=== PATIENT | female | born 1955 | race Caucasian/White ===

== ENCOUNTER 2018-09-27 04:30 | Emergency (ER) | payer MEDICARE, OTHER ==
[2018-09-27 04:40] VITALS: O2SAT 100
[2018-09-27] MEDS ORDERED: Zofran 4 MG/2 ML VIAL IV ONE (05:17)
[2018-09-27] MEDS ORDERED: SUBLIMAZE 100 MCG/2 ML IV ONE (05:17)
[2018-09-27] MEDS ORDERED: MORPHINE SULFATE 4 MG INJ IV ONE (05:17)
[2018-09-27] MEDS ORDERED: BENADRYL 50 MG/ML IV ONE (05:17)
--- NOTE | 2018-09-27 05:22 | ERPHSYRPT ---
- History of Present Illness Time Seen by Provider: 09/27/18 05:17 Historian: patient, family Exam Limitations: no limitations Patient Subjective Stated Complaint: pt states, "we flew into [facility] on Fri and I went to their urgent care due to rt sided low abd pain. CT was done and shown constipation". I took fleets enema, dulcolax suppository all in groups, with no results". Triage Nursing Assessment: lungs clear, heart tones, reg, abd soft with active bs x4 quad, non-tender on palpation. Pt states, "I felt good yesterday but woke up today at 0200 with lower abd pain again to rt side". Pt took enema and suppository this am at 0200 with no results. Physician History: pt saw urgent care and had reported neg CT for abd pain 2 days ago , but is awakened by severe pain again this am in middle of night and is tender at the RLQ ; prior GB surgery; no vomiting but is nauseated. no afib or heart known Timing/Duration: day(s) Quality: sharpness, stabbing Abdominal Pain Onset Location: RLQ Pain Radiation: periumbilical, back Severity of Pain-Max: severe Severity of Pain-Current: moderate Modifying Factors: Improves With: nothing Associated Symptoms: loss of appetite, nausea Previous symptoms: same symptoms as today, recently seen, recently treated Allergies/Adverse Reactions: No Known Drug Allergies Allergy (Unverified 09/27/18 04:57) Home Medications: Lisinopril 10 mg [Zestril 10 MG] 10 mg PO DAILY 09/27/18 [History] Phenylephrine HCl/Chlor-Mal [Sudafed PE Sinus & Allergy Tab] 1 tab PO DAILY [History] Hx Tetanus, Diphtheria Vaccination/Date Given: Yes Hx Influenza Vaccination/Date Given: Yes Hx Pneumococcal Vaccination/Date Given: No Immunizations Up to Date: Yes - Review of Systems Constitutional: No Fever, No Chills Eyes: No Symptoms Ears, Nose, & Throat: No Symptoms Respiratory: No Cough, No Dyspnea Cardiac: No Chest Pain, No Edema, No Syncope Abdominal/Gastrointestinal: Abdominal Pain, Nausea, No Vomiting, No Diarrhea Genitourinary Symptoms: No Dysuria Musculoskeletal: No Back Pain, No Neck Pain Skin: No Rash Neurological: No Dizziness, No Focal Weakness, No Sensory Changes Psychological: No Symptoms Endocrine: No Symptoms All Other Systems: Reviewed and Negative - Past Medical History Pertinent Past Medical History: Yes Neurological History: Other ENT History: No Pertinent History Cardiac History: Hypertension Respiratory History: No Pertinent History Endocrine Medical History: No Pertinent History Musculoskeletal History: No Pertinent History GI Medical History: Gallbladder Disease History: No Pertinent History Psycho-Social History: No Pertinent History Female Reproductive Disorders: No Pertinent History Other Medical History: hypnic headaches, Hep C (cured) - Past Surgical History Past Surgical History: Yes Neuro Surgical History: No Pertinent History Cardiac: No Pertinent History Respiratory: No Pertinent History Gastrointestinal: Cholecystectomy Genitourinary: No Pertinent History Musculoskeletal: No Pertinent History Female Surgical History: Section Other Surgical History: cryosurgery - Social History Smoking Status: Never smoker Exposure to second hand smoke: No Drug Use: none Patient Lives Alone: No - Female History Hx Now: No - Nursing Vital Signs Nursing Vital Signs: Initial Vital Signs Temperature 97.2 F 09/27/18 04:35 Pulse Rate 72 09/27/18 04:35 Respiratory Rate 18 09/27/18 04:35 Blood Pressure 153/84 09/27/18 04:35 O2 Sat by Pulse Oximetry 100 09/27/18 04:35 Pain Scale Pain Intensity 9 - Physical Exam General Appearance: no apparent distress, alert Eye Exam: PERRL/EOMI, eyes nml inspection Ears, Nose, Throat Exam: normal ENT inspection, pharynx normal, moist mucous membranes Neck Exam: normal inspection, non-tender, supple, full range of motion Respiratory Exam: normal breath sounds, lungs clear, airway intact, No respiratory distress Cardiovascular Exam: regular rate/rhythm, normal heart sounds Gastrointestinal/Abdomen Exam: soft, tenderness, No mass Pelvic Exam: deferred Rectal Exam: deferred Back Exam: normal inspection, normal range of motion, No CVA tenderness, No vertebral tenderness Extremity Exam: normal inspection, normal range of motion, pelvis stable Neurologic Exam: alert, oriented x 3, cooperative, normal mood/affect, nml cerebellar function, sensation nml, No motor deficits Skin Exam: normal color, warm, dry SpO2: 100 - Course Nursing assessment & vital signs reviewed: Yes EKG Interpreted by Me: Sinus Rhythm, NORMAL AXIS, Non-specific ST Changes - CT Exams Abdomen/Pelvis CT Interpretation: Tele-radiologist Report, No appendicitis, Other (thickened sigmoid colon , possible colon irritation) Ordered Tests: Active Orders 24 hr Category Date Time Status EKG-ER Only STAT Care 09/27/18 05:17 Active IV Insertion STAT Care 09/27/18 05:17 Active NPO (ED) STAT Care 09/27/18 05:17 Active ABDOMEN AND PELVIS W/0 CONTRAS [CT] Stat Exams 09/27/18 05:18 Taken AMYLASE Stat Lab 09/27/18 06:13 Completed CBC W DIFF Stat Lab 09/27/18 06:13 Completed CMP Stat Lab 09/27/18 06:13 Completed LIPASE Stat Lab 09/27/18 06:13 Completed Lactic Acid Stat Lab 09/27/18 06:15 Completed Occult Blood, Other Screening Stat Lab 09/27/18 05:18 Uncollected TROPONIN Q3H Lab 09/27/18 06:13 Completed TROPONIN Q3H Lab 09/27/18 08:30 Ordered TROPONIN Q3H Lab 09/27/18 11:30 Ordered TROPONIN Q3H Lab 09/27/18 14:30 Ordered TROPONIN Q3H Lab 09/27/18 17:30 Ordered UA W/RFX UR CULTURE Stat Lab 09/27/18 05:45 Completed Medication Summary Generic Name Dose Route Start Last Admin Trade Name Freq PRN Reason Stop Dose Admin Sodium Chloride 1,000 mls @ 100 mls/hr 09/27/18 05:30 09/27/18 06:06 Sodium Chloride 0.9% 1000 Ml IV 10/27/18 05:29 100 mls/hr .Q10H JUSTIN Administration Discontinued Medications Generic Name Dose Route Start Last Admin Trade Name Freq PRN Reason Stop Dose Admin Diphenhydramine HCl 25 mg 09/27/18 05:17 09/27/18 06:05 Benadryl 50 Mg/Ml IV 09/27/18 05:18 25 mg STAT ONE Administration Diphenhydramine HCl Confirm 09/27/18 06:02 Benadryl 50 Mg/Ml Administered 09/27/18 06:03 Dose 50 mg .ROUTE .STK-MED ONE Fentanyl Citrate 50 mcg 09/27/18 05:17 09/27/18 06:08 Sublimaze 100 Mcg/2 Ml IV 09/27/18 05:18 Not Given STAT ONE Morphine Sulfate 4 mg 09/27/18 05:17 09/27/18 06:06 Morphine Sulfate 4 Mg Inj IV 09/27/18 05:18 4 mg STAT ONE Administration Morphine Sulfate Confirm 09/27/18 06:03 Morphine Sulfate 4 Mg Inj Administered 09/27/18 06:04 Dose 4 mg .ROUTE .STK-MED ONE Ondansetron HCl 4 mg 09/27/18 05:17 09/27/18 06:06 Zofran 4 Mg/2 Ml Vial IV 09/27/18 05:18 4 mg STAT ONE Administration Ondansetron HCl Confirm 09/27/18 06:02 Zofran 4 Mg/2 Ml Vial Administered 09/27/18 06:03 Dose 4 mg .ROUTE .STK-MED ONE Lab/Rad Data: Laboratory Result Diagrams 09/27/18 06:13 09/27/18 06:13 Laboratory Results 09/27/18 09/27/18 09/27/18 Range/Units 06:15 06:13 06:13 WBC (4.0-10.5) K/mm3 RBC (4.1-5.4) M/mm3 Hgb (12.0-16.0) gm/dl Hct (35-47) % MCV (78-100) fl MCH (26-32) pg MCHC (32-36) g/dl RDW (11.5-14.0) % Plt Count (150-450) K/mm3 MPV (6-9.5) fl Gran % (36.0-66.0) % Eos # (Auto) (0-0.5) Absolute Lymphs (auto) (1.0-4.6) Absolute Monos (auto) (0.0-1.3) Lymphocytes % (24.0-44.0) % Monocytes % (0.0-12.0) % Eosinophils % (0.00-5.0) % Basophils % (0.0-0.4) % Absolute Granulocytes (1.4-6.9) Basophils # (0-0.4) Sodium 135 L (137-145) mmol/L Potassium 4.2 (3.5-5.1) mmol/L Chloride 98 (98-107) mmol/L Carbon Dioxide 30 (22-30) mmol/L Anion Gap 11.2 (5-15) MEQ/L BUN 12 (7-17) mg/dL Creatinine 0.78 (0.52-1.04) mg/dL Estimated GFR > 60.0 ML/MIN Glucose 91 (74-106) mg/dL Lactic Acid 1.0 (0.4-2.0) Calcium 9.8 (8.4-10.2) mg/dL Total Bilirubin 0.80 (0.2-1.3) mg/dL AST 24 (14-36) U/L ALT 23 (0-35) U/L Alkaline Phosphatase 43 (38-126) U/L Troponin I < 0.012 (0.000-0.034) ng/mL Serum Total Protein 7.0 (6.3-8.2) g/dL Albumin 4.5 (3.5-5.0) g/dL Amylase 98 (30-110) U/L Lipase 160 (23-300) U/L Urine Color (YELLOW) Urine Appearance (CLEAR) Urine pH (5-6) Ur Specific [place] (1.005-1.025) Urine Protein (Negative) Urine Ketones (NEGATIVE) Urine Blood (0-5) Trent/ul Urine Nitrite (NEGATIVE) Urine Bilirubin (NEGATIVE) Urine Urobilinogen (0-1) mg/dL Ur Leukocyte Esterase (NEGATIVE) Urine WBC (Auto) (0-5) /HPF Urine RBC (Auto) (0-2) /HPF U Epithel Cells (Auto) (FEW) /HPF Urine Bacteria (Auto) (NEGATIVE) /HPF Urine Culture Reflexed (NO) Urine Glucose (NEGATIVE) mg/dL 09/27/18 09/27/18 Range/Units 06:13 05:45 WBC 6.0 (4.0-10.5) K/mm3 RBC 4.65 (4.1-5.4) M/mm3 Hgb 14.5 (12.0-16.0) gm/dl Hct 41.7 (35-47) % MCV 89.7 (78-100) fl MCH 31.2 (26-32) pg MCHC 34.8 (32-36) g/dl RDW 12.7 (11.5-14.0) % Plt Count 159 (150-450) K/mm3 MPV 11.4 H (6-9.5) fl Gran % 52.8 (36.0-66.0) % Eos # (Auto) 0.15 (0-0.5) Absolute Lymphs (auto) 1.86 (1.0-4.6) Absolute Monos (auto) 0.81 (0.0-1.3) Lymphocytes % 31.0 (24.0-44.0) % Monocytes % 13.5 H (0.0-12.0) % Eosinophils % 2.5 (0.00-5.0) % Basophils % 0.2 (0.0-0.4) % Absolute Granulocytes 3.17 (1.4-6.9) Basophils # 0.01 (0-0.4) Sodium (137-145) mmol/L Potassium (3.5-5.1) mmol/L Chloride (98-107) mmol/L Carbon Dioxide (22-30) mmol/L Anion Gap (5-15) MEQ/L BUN (7-17) mg/dL Creatinine (0.52-1.04) mg/dL Estimated GFR ML/MIN Glucose (74-106) mg/dL Lactic Acid (0.4-2.0) Calcium (8.4-10.2) mg/dL Total Bilirubin (0.2-1.3) mg/dL AST (14-36) U/L ALT (0-35) U/L Alkaline Phosphatase (38-126) U/L Troponin I (0.000-0.034) ng/mL Serum Total Protein (6.3-8.2) g/dL Albumin (3.5-5.0) g/dL Amylase (30-110) U/L Lipase (23-300) U/L Urine Color STRAW (YELLOW) Urine Appearance CLEAR (CLEAR) Urine pH 6.0 (5-6) Ur Specific [place] 1.005 (1.005-1.025) Urine Protein NEGATIVE (Negative) Urine Ketones NEGATIVE (NEGATIVE) Urine Blood SMALL (0-5) Trent/ul Urine Nitrite NEGATIVE (NEGATIVE) Urine Bilirubin NEGATIVE (NEGATIVE) Urine Urobilinogen NEGATIVE (0-1) mg/dL Ur Leukocyte Esterase NEGATIVE (NEGATIVE) Urine WBC (Auto) NONE (0-5) /HPF Urine RBC (Auto) NONE (0-2) /HPF U Epithel Cells (Auto) NONE (FEW) /HPF Urine Bacteria (Auto) NONE (NEGATIVE) /HPF Urine Culture Reflexed NO (NO) Urine Glucose NEGATIVE (NEGATIVE) mg/dL - Progress Progress: unchanged, re-examined Progress Note: 09/27/18 07:00 discussed with pt and and dr Bhakta covering and all agree best to place in on obs, and will start ab as if colitis or divertic; Discussed with : Yony Will see patient in: hospital (observation) Counseled pt/family regarding: lab results, diagnosis, need for follow-up, rad results - Departure Departure Disposition: Observation Clinical Impression: Abdominal pain of unknown etiology, Hematuria Condition: Good Critical Care Time: No Referrals: Provider,Unknown [Primary Care Provider] -
[2018-09-27] MEDS ORDERED: Sodium Chloride 0.9% 1000 ML 1,000 ML IV SCH ×2 (05:30→07:30)
[2018-09-27 05:54] LABS: Appearance CLEAR (CLEAR); Bilirubin NEGATIVE (NEGATIVE); Blood SMALL Ery/ul (0-5); Glucose NEGATIVE (NEGATIVE); Ketones NEGATIVE (NEGATIVE); Leukocyte Esterase NEGATIVE (NEGATIVE); Nitrite NEGATIVE (NEGATIVE); Protein,Urine Dip NEGATIVE (Negative); Specific Gravity 1.005 (1.005-1.025); Urobilinogen NEGATIVE mg/dL (0-1)
[2018-09-27] MEDS ORDERED: BENADRYL 50 MG/ML ONE (06:02)
[2018-09-27] MEDS ORDERED: Zofran 4 MG/2 ML VIAL ONE (06:02)
[2018-09-27] MEDS ORDERED: MORPHINE SULFATE 4 MG INJ ONE (06:03)
[2018-09-27] MEDS ORDERED: Sodium Chloride 0.9% 1000 ML 1,000 ML ONE (06:03)
[2018-09-27 06:16] LABS: BASOPHIL % 0.2 % (0.0-0.4); Basophil (Absolute #) 0.01 (0-0.4); Eosinophil % 2.5 % (0.00-5.0); Eosinophil (Absolute #) 0.15 (0-0.5); Granulocyte Absolute (ANC) 3.17 (1.4-6.9); Granulocytes % 52.8 % (36.0-66.0); Hematocrit 41.7 % (35-47); Hemoglobin 14.5 gm/dl (12.0-16.0); Lymphocyte (Absolute #) 1.86 (1.0-4.6); Mean Cell Volume 89.7 fl (78-100); Mean Corpuscular Hemoglobin 31.2 pg (26-32); Mean Corpuscular Hgb Concent. 34.8 g/dl (32-36); Mean Platelet Volume 11.4 fl (6-9.5); Monocyte (Absolute #) 0.81 (0.0-1.3); Monocytes % 13.5 % (0.0-12.0); Platelet Count 159 K/mm3 (150-450); Red Blood Count 4.65 M/mm3 (4.1-5.4); Red Cell Distribution Width 12.7 % (11.5-14.0)
[2018-09-27 06:27] LABS: ALBUMIN 4.5 g/dL (3.5-5.0); ALKALINE PHOSPHATASE 43 U/L (38-126); AMYLASE 98 U/L (30-110); ANION GAP 11.2 MEQ/L (5-15); BLOOD UREA NITROGEN 12 mg/dL (7-17); CHLORIDE 98 mmol/L (98-107); Calcium 9.8 mg/dL (8.4-10.2); Carbon Dioxide 30 mmol/L (22-30); Creatinine 1 0.78 mg/dL (0.52-1.04); Glucose 91 mg/dL (74-106); LIPASE 160 U/L (23-300); Potassium 4.2 mmol/L (3.5-5.1); SGOT/AST 24 U/L (14-36); SGPT/ALT 23 U/L (0-35); SODIUM 135 mmol/L (137-145)
[2018-09-27 06:48] VITALS: BP 138/70; PULSE 62
[2018-09-27] MEDS ORDERED: DILAUDID 2 MG INJECTION IV PRN (07:19)
[2018-09-27] MEDS ORDERED: BENADRYL 50 MG/ML IV PRN (07:19)
[2018-09-27] MEDS ORDERED: Zofran 4 MG/2 ML VIAL IV PRN (07:19)
[2018-09-27] MEDS ORDERED: NovoLIN R SQ PRN (07:19)
[2018-09-27] MEDS ORDERED: MORPHINE SULFATE 4 MG INJ IV PRN (07:19)
[2018-09-27] MEDS ORDERED: Levofloxacin 500MG/100ML D5W 500 MG/100 ML BAG IV SCH (10:00)
[2018-09-27] MEDS ORDERED: PROTONIX 40 MG IV IV SCH (10:00)
[2018-09-27] MEDS ORDERED: Pepcid 20 MG VIAL IV SCH (10:00)
[2018-09-27] MEDS ORDERED: FLAGYL 500 MG IVPB 500 MG/100 ML BAG IV SCH (12:00)
--- NOTE | 2018-09-27 13:33 | XRAY ---
Indication: Right lower quadrant pain. Constipation. Multiple contiguous axial images obtained through the abdomen and pelvis without contrast as ordered. Comparison: None Lung bases are clear. Heart is not enlarged. Noncontrasted stomach and bowel loops appear nonobstructed. Appendix not seen. There is mild diffuse scattered colonic fecal debris greatest in the right hemicolon. Previous cholecystectomy. No free fluid/air. Remaining liver, pancreas, spleen, adrenal glands, kidneys, ureters, bladder, and uterus appear unremarkable for noncontrast exam. Minimal aortoiliac calcifications without AAA. Osseous structures intact. Mild lumbar degenerative changes. No ventral or inguinal hernias. Impression: 1. Mild fecal stasis without obstruction. 2. Remaining CT abdomen/pelvis without contrast exam is negative. Comment: Preliminary interpretation was made by [facility]. No critical discrepancy. CTDI 9.32
== END 2018-09-27 08:03 | disposition left against medical advice (07) ==
LOC: ED 04:30
DX: R10.9 Unspecified abdominal pain (principal); R31.9 Hematuria, unspecified; I10 Essential (primary) hypertension
CPT/HCPCS: 36000; 36415; 74176; 80053; 81001; 82150; 83605; 83690; 84484; 85025; 93005; 96360; 96361; 96374; 96375; 99285; J1200; J2270; J2405